=== PATIENT | male | born 1960 | race Caucasian/White ===

== ENCOUNTER 2022-01-28 19:36 | Emergency (ER) | payer BC, SELFPAY ==
--- NOTE | ~2022-01-28 | CT_ITS ---
EXAMINATION: CT abdomen pelvis wo con DATE: 01/28/2022 22:03 INDICATION: Left flank pain TECHNIQUE: Computed tomography (CT) of the abdomen and pelvis was performed without intravenous contr ast. The dose-length product (DLP) was 1058.25 mGy-cm. Automated exposure control and iterative recon struction technique were employed. COMPARISON: None FINDINGS: Minimal dependent atelectasis is present in the lung bases. The heart size is normal. There is a 6 mm cyst in the right hepatic lobe. The pancreas, spleen, and gallbladder are normal. There is a 2.5 cm low-attenuation mass of the left adrenal gland, consistent with an adenoma. A right interna l ureteral stent is in expected position. 6 mm stone in the left kidney lower pole. There is moderate left hydronephrosis. There is a 2 mm nonobstructing stone of the right mid kidney. No pathologically enlarged abdominal or pelvic lymph nodes are identified. There is no free intraperitoneal gas or gama dence of bowel obstruction. The appendix is normal. There is mild lumbar spondylosis. IMPRESSION: 1. Left internal ureteral stent in expected position with moderate left hydronephrosis. 2. Bilateral nephrolithiasis. Reviewed, dictated and finalized at location F. [facility] IMPRESSION: 1. Left internal ureteral stent in expected position with moderate left hydrone phrosis. 2. Bilateral nephrolithiasis.
--- NOTE | ~2022-01-28 | XR_ITS ---
EXAMINATION: XR abdomen/kub 1V INDICATION: Flank pain, history of kidney stones TECHNIQUE: Supine views of the abdomen were obtained on 2 radiographs. COMPARISON: CT from today FINDINGS: A left internal ureteral stent is in expected position. There is a 5 mm stone of the left k [place] lower pole. The bowel gas pattern is normal. IMPRESSION: 1. Left internal ureteral stent in expected position. 2. Left nephrolithiasis. Reviewed, dictated and finalized at location F. [facility]
[2022-01-28 19:41] VITALS: BP 140/90; PULSE 84; RESP 18; TEMP 36.7; O2SAT 98
[2022-01-28 20:24] LABS: Hematocrit 49.1 % (42.0-52.0); Hemoglobin 17.1 g/dL (14.0-18.0); Mean Corpuscular HGB Conc 34.8 g/dl (32-36); Mean Corpuscular Hemoglobin 31.1 pg (26-34); Mean Corpuscular Volume 89.4 fl (80-100); Mean Platelet Volume 9.7 fl (7.4-10.4); Platelet Count Result 276 k/mm3 (150-375); Red Blood Count 5.49 M/mm3 (4.6-6.20); Red Cell Distribution Width 14.5 % (11.5-14.5); White Blood Count 9.1 K/mm3 (4.5-10.0)
[2022-01-28 20:29] LABS: Add Urine Microscopic? YES; Appearance Urine Turbid (Clear); Bilirubin Urine 1+ (Negative); Blood Urine 3+ (Negative); Color Urine Red (Yellow); Glucose Urine UA Negative (Negative); Ketones Urine Trace mg/dL (Negative); Leukocyte Esterase Ur Trace LEU/UL (Negative); Nitrate Urine Negative (Negative); Protein Urine 3+ mg/dL (Negative); Specific Grav Ur 1.025 (1.001-1.035); pH Urine 6.5 (5.0-9.0)
[2022-01-28 20:36] LABS: Alanine Aminotransferase 28 U/L (6-50); Albumin Level 4.5 g/dL (3.5-5.1); Alkaline Phosphatase 89 U/L (38-126); Anion Gap 13 mmol/L (8-16); Aspartate Amino Transferase 24 U/L (17-59); Bilirubin,Total 0.8 mg/dL (0.2-1.3); Blood Urea Nitrogen 24 mg/dL (9-20); Calcium 9.1 mg/dL (8.4-10.2); Carbon Dioxide 25 mmol/L (22-30); Chloride 104 mmol/L (98-107); Estimated CRCL calculation 69 ml/min; Estimated Glomerular Filt Rate 56; Glucose 115 mg/dL (65-110); Sodium 142 mmol/L (137-145)
[2022-01-28 20:43] LABS: Mucus Urine Rare /lpf; RBC Urine >75 /hpf (0-2)
[2022-01-28 20:49] LABS: Basophils Absolute Manual 0.09 K/mm3 (0.0-0.1); Basophils Percent Manual 1 % (0-1); Eosinophils Absolute Manual 0.27 K/mm3 (0.02-0.5); Eosinophils Percent Manual 3 % (0-4); Lymphocytes Absolute Manual 2.63 K/mm3 (1.1-4.5); Lymphocytes Percent Manual 29 % (18-44); Monocytes Absolute Manual 0.81 K/mm3 (0.1-0.90); Monocytes Percent Manual 9 % (3-9); Neutrophils Percent Manual 58 % (46-73); Platelet Estimate Adequate (Adequate); Smudge Cells FEW; Total Cells Counted 100
[2022-01-28 20:50] LABS: Anisocytosis 1+ (NORMAL); Ovalocytes 1+ (NORMAL); Schistocytes None Seen (NORMAL)
--- NOTE | 2022-01-28 22:06 | ED.ABDPAIN ---
HPI - Abdominal Pain General Chief Complaint: Abdominal Pain Stated Complaint: left flank pain Time Seen by Provider: 01/28/22 21:29 Source: patient Mode of arrival: ambulatory Limitations: no limitations History of Present Illness HPI narrative: 61-year-old male recently had lithotripsy done that was unsuccessful, then had a urinary stent put in, presents today with complaints of increasing left flank pain, chills, sweats. Patient states he has a procedure scheduled for Friday at [facility] but the pain increased and he decided to be seen. Patient was sent home with [place] every 8 hours as needed for pain but patient is only taking half of a tab. States the pain is relieved for about 3 to 4 hours but then comes back. Patient states urine does have some blood in it but he is not passing clots at this time. Related Data Allergies Allergy/AdvReac Type Severity Reaction Status Date / Time Penicillins Allergy Unknown Rash Verified 01/28/22 19:47 Review of Systems Review of Systems: CONSTITUTIONAL: Denies fever, chills, or sweats. EYES: Denies visual changes, redness, or discharge. ENT: Denies rhinorrhea, congestion, sore throat, or otalgia. CARDIOVASCULAR: Denies chest pain, palpitations, or edema. RESPIRATORY: Denies cough or dyspnea. GASTROINTESTINAL: Denies abdominal pain, nausea, vomiting, or diarrhea. GENITOURINARY: Denies dysuria or hematuria. SKIN: Denies rash or itching. MUSCULOSKELETAL: Denies back pain, joint pain, or myalgia. NEUROLOGIC: Denies headache, numbness, dizziness, or weakness. PSYCHIATRIC: Denies anxiety or depression. Exam Narrative: GENERAL: Well-appearing, well-nourished, and in no acute distress. HEAD: Normocephalic, atraumatic. EYES: PERRLA and EOMI. NECK: Supple. No adenopathy or masses. No carotid bruits or JVD CHEST: Clear to auscultation. No respiratory distress. No wheezes rales or rhonchi HEART: Regular rate and rhythm. No murmur heard. Normal peripheral pulses. ABDOMEN: Soft, nontender, nondistended, normal active bowel sounds. EXTREMITIES: Normal range of motion. No edema. SKIN: Warm, dry, no rash. Course Course Emergency Course: Patient much improved after morphine and IV fluids. Discussed findings with patient. Discussed conversation with urology. Will discharge patient home plan follow-up with urology as scheduled. I did suggest to the patient to call urology tomorrow to update them on status. Consultations Consultation #1: Dr. Fox consulted. Reviewed case. Patient to be discharged with bactrim and oxybutinin. Continue with follow up as scheduled. Vital Signs Vital signs: Vital Signs Temperature 98.1 F 01/28/22 19:41 Pulse Rate 84 01/28/22 19:41 Respiratory Rate 18 01/28/22 19:41 Blood Pressure 140/90 01/28/22 19:41 Pulse Oximetry 98 01/28/22 19:41 Oxygen Delivery Room Air 01/28/22 19:41 Temperature 98.1 F 01/28/22 19:41 Pulse Rate 64 01/29/22 00:05 Respiratory Rate 18 01/29/22 00:05 Blood Pressure 126/88 01/29/22 00:05 Pulse Oximetry 99 01/29/22 00:05 Oxygen Delivery Room Air 01/28/22 19:41 MDM - Abdominal Pain MDM Narrative Medical decision making narrative: 7-year-old male HPI as noted. Differentials noted below work-up to include CBC, CMP, urinalysis, CT of the abdomen pelvis without contrast and KUB. CBC without concerning findings CMP shows a GFR of 56, urine with concern for possible infection. Urine has blood, bilirubin, leukocyte Estrace, RBCs, and WBCs. Discussed case with urology. Plan discharge home with Bactrim, and oxybutynin. Continue follow-up as scheduled. I did suggest to the patient to call urology in the morning. Differential Diagnosis Differential diagnosis: Likely abdominal pain, calculus of kidney and other (Dislodged ureteral stent, hydronephrosis) Medical Records Attestation: I reviewed the patient's medical records. Lab Data Attestation: I reviewed the patient's lab results. Resul
[2022-01-28] MEDS: SODIUM CHLORIDE 0.9% IV 1,000 ML 999 ML IV CONT (22:25)
[2022-01-28] MEDS: ONDANSETRON INJ 4 MG/2 ML VIAL IV PUSH (22:25)
[2022-01-28] MEDS: MORPHINE SULFATE (*CRX) 4 MG/ML INJ IV PUSH (22:26)
[2022-01-28 22:29] VITALS: BP 135/99; PULSE 89; RESP 18; O2SAT 94
[2022-01-28] MEDS: OXYBUTYNIN CHLORIDE 5 MG TABLET PO (23:57)
[2022-01-28] MEDS: SULFAMETHOXAZOLE/TRIMETHOPRIM 800/160 MG DS TABLET 1 TAB PO (23:57)
[2022-01-29 00:05] VITALS: BP 126/88; PULSE 64; RESP 18; O2SAT 99
== END 2022-01-29 00:05 | disposition home or self-care (01) ==
PROVIDERS: Emergency Medicine; Emergency Provider Nurse Practitioner Family
DX: N20.0 Calculus of kidney (principal); Z96.0 Presence of urogenital implants
CPT/HCPCS: 36415; 74018; 74176; 80053; 81001; 85025; 87086; 96361; 96374; 96375; 99284; A9270; J2270; J2405; J7030